=== PATIENT | female | born 1955 | race Hispanic/Latino ===

== ENCOUNTER 2022-09-08 07:21 | Inpatient (IN) | payer MEDICARE, OTHER ==
[~2022-09-08] VITALS: Ht 160 cm; Wt 74.8 kg
[~2022-09-08 07:21] MED LIST: ANTI-INFLAMMATORY; CALCIUM PO
[2022-09-08] MEDS ORDERED: SODIUM CHLORIDE 0.9% 1000ML 1,000 ML IV STA (07:26)
[2022-09-08 07:45] LABS: BASOPHILS % 0.1 % (0.0-1.0); EOSINOPHILS % 0.1 % (0.0-6.0); HEMATOCRIT 47.4 % (34.2-44.1); HEMOGLOBIN 15.7 g/dL (12.0-16.0); MEAN CORPUSCULAR HEMOGLOBIN 28.5 pg (28-32); MEAN CORPUSCULAR HGB CONC 33.1 g/dL (31-35); MONOCYTES # (AUTO) 0.3 (0.2-0.8); MONOCYTES % 2.2 % (4.4-11.3); NEUTROPHILS # (AUTO) 12.7 (2.1-6.9); NEUTROPHILS % 90.3 % (38.7-80.0); PLATELET COUNT 220 x10e3/uL (140-360); RED BLOOD COUNT 5.51 x10e6/uL (3.6-5.1); RED CELL DISTRIBUTION WIDTH 13.2 % (11.7-14.4)
[2022-09-08] MEDS ORDERED: ONDANSETRON HCL INJ 2MG/ML 2ML 2 MG/ML VIAL IV STA (07:45)
[2022-09-08 08:10] LABS: ANION GAP 17.2 mmol/L (8-16); CALCIUM 9.2 mg/dL (8.4-10.2); CREATININE, SERUM 0.86 mg/dL (0.57-1.11); POTASSIUM 4.2 mmol/L (3.5-5.1)
[2022-09-08] MEDS ORDERED: CEFTRIAXONE 1 GM VIAL IM ONE (08:15)
[2022-09-08] MEDS: LACTATED RINGER'S 1,000 ML INJ SCH ×2 (08:20→16:29)
[2022-09-08] MEDS ORDERED: IOPAMIDOL 370 MG/ML 100 ML INFUS..BTL INJ ONE (08:46)
[2022-09-08 08:47] LABS: CLARITY,URINE SL CLOUDY (CLEAR); COLOR,URINE YELLOW (YELLOW); KETONES,URINE 2+ (NEGATIVE); LEUKOCYTE ESTERASE ,URINE NEGATIVE (NEGATIVE); NITRITE,URINE NEGATIVE (NEGATIVE); PROTEIN,URINE DIPSTICK NEGATIVE (NEGATIVE); URINE UROBILINOGEN 0.2 mg/dL (0.2 - 1)
[2022-09-08 08:49] LABS: RBC,URINE 0-5 /HPF (0-5)
[2022-09-08 08:50] LABS: BACTERIA,URINE FEW /HPF; EPITHELIAL CELLS,URINE MODERATE /LPF
[2022-09-08] MEDS ORDERED: DEXTROSE 50% SYRINGE 50 ML IV PRN ×2 (10:00)
[2022-09-08] MEDS: INSULIN LISPRO 100 UNIT/1 ML 3ML VIAL SQ SCH ×3 (11:41→20:19)
[2022-09-08 12:15] LABS: CHOL/HDL RATIO 4.4 (3.0-3.6)
[2022-09-08 12:52] LABS: ALBUMIN 3.6 g/dL (3.5-5.0); ALBUMIN/GLOBULIN RATIO 1.1 (0.8-2.0); ANION GAP 13.5 mmol/L (8-16); CALCIUM 8.5 mg/dL (8.4-10.2); CREATININE, SERUM 0.74 mg/dL (0.57-1.11); POTASSIUM 4.5 mmol/L (3.5-5.1)
[2022-09-08 13:48] VITALS: BP 138/81; PULSE 91; RESP 17; TEMP 98.7; O2SAT 97
[2022-09-08 15:11] VITALS: BP 130/81; PULSE 91; RESP 18; TEMP 98.7; O2SAT 97
[2022-09-08] MEDS ORDERED: GLIMEPIRIDE2 MG PO (15:20)
[2022-09-08] MEDS ORDERED: METOPROLOL SUCC50 MG PO (15:20)
[2022-09-08 15:53] VITALS: BP 130/81; PULSE 91; RESP 18; TEMP 98.7; O2SAT 97
[2022-09-08 16:09] VITALS: BP 133/73; PULSE 84; RESP 20; TEMP 99.3; O2SAT 99
[2022-09-08] MEDS: FAMOTIDINE 20 MG/2 ML VIAL IV SCH (16:29)
[2022-09-08 20:57] VITALS: BP 135/71; PULSE 77; RESP 20; TEMP 98.6; O2SAT 100
[2022-09-08 21:00] VITALS: BP 135/71; PULSE 77; RESP 20; TEMP 98.6; O2SAT 100
[2022-09-09] VITALS (7 sets, daily range): BP systolic 126–148; BP diastolic 66–85; PULSE 69–88; RESP 17–18; TEMP 97.8–98.6; O2SAT 96–100
[2022-09-09] MEDS: LACTATED RINGER'S 1,000 ML INJ SCH ×3 (01:17→16:40)
[2022-09-09 05:24] LABS: BASOPHILS % 0.3 % (0.0-1.0); EOSINOPHILS % 0.3 % (0.0-6.0); HEMATOCRIT 42.4 % (34.2-44.1); HEMOGLOBIN 13.4 g/dL (12.0-16.0); LYMPHOCYTES # (AUTO) 1.1 (1.0-3.2); LYMPHOCYTES % 18.4 % (18.0-39.1); MEAN CORPUSCULAR HEMOGLOBIN 27.6 pg (28-32); MEAN CORPUSCULAR HGB CONC 31.6 g/dL (31-35); MEAN CORPUSCULAR VOLUME 87.2 fL (81-99); MONOCYTES # (AUTO) 0.4 (0.2-0.8); NEUTROPHILS # (AUTO) 4.4 (2.1-6.9); NEUTROPHILS % 74.7 % (38.7-80.0); PLATELET COUNT 178 x10e3/uL (140-360); RED BLOOD COUNT 4.86 x10e6/uL (3.6-5.1); RED CELL DISTRIBUTION WIDTH 13.2 % (11.7-14.4)
[2022-09-09 05:45] LABS: ANION GAP 14.8 mmol/L (8-16); CALCIUM 8.3 mg/dL (8.4-10.2); CREATININE, SERUM 0.7 mg/dL (0.57-1.11); POTASSIUM 3.8 mmol/L (3.5-5.1)
[2022-09-09] MEDS: FAMOTIDINE 20 MG/2 ML VIAL IV SCH ×2 (08:15→16:40)
[2022-09-09] MEDS: INSULIN LISPRO 100 UNIT/1 ML 3ML VIAL SQ SCH ×4 (08:33→19:46)
[2022-09-09] MEDS: METOPROLOL SUCCINATE 50 MG TAB XL PO SCH (10:16)
[2022-09-10] VITALS (8 sets, daily range): BP systolic 126–151; BP diastolic 57–79; PULSE 71–81; RESP 15–18; TEMP 97.9–98.9; O2SAT 98–100
[2022-09-10] MEDS: LACTATED RINGER'S 1,000 ML INJ SCH ×5 (00:43→20:46)
[2022-09-10] MEDS: INSULIN LISPRO 100 UNIT/1 ML 3ML VIAL SQ SCH ×4 (07:30→20:45)
[2022-09-10] MEDS ORDERED: Morphine 2mg Syringe 2 MG/ML SYR IV PRN (08:00)
[2022-09-10] MEDS ORDERED: Morphine 4mg INJECTION 4 MG/ML INJ ONE (08:19)
[2022-09-10] MEDS ORDERED: METOPROLOL SUCCINATE 50 MG TAB XL PO SCH (09:00)
[2022-09-10] MEDS: FAMOTIDINE 20 MG/2 ML VIAL IV SCH ×2 (09:14→16:05)
[2022-09-10] MEDS: METOPROLOL SUCCINATE 50 MG TAB XL PO SCH (09:15)
[2022-09-11] VITALS (7 sets, daily range): BP systolic 127–169; BP diastolic 64–82; PULSE 70–85; RESP 17; TEMP 97.9–98.9; O2SAT 95–100
[2022-09-11] MEDS: LACTATED RINGER'S 1,000 ML INJ SCH (05:13)
[2022-09-11] MEDS: INSULIN LISPRO 100 UNIT/1 ML 3ML VIAL SQ SCH ×2 (07:30→11:30)
[2022-09-11] MEDS: FAMOTIDINE 20 MG/2 ML VIAL IV SCH (08:45)
[2022-09-11] MEDS: METOPROLOL SUCCINATE 50 MG TAB XL PO SCH (08:46)
[2022-09-11] MEDS ORDERED: SENOKOT8.6 MG PO (11:30)
[2022-09-11] MEDS ORDERED: CEPHALEXIN500 MG PO (11:30)
[2022-09-11] MEDS ORDERED: FAMOTIDINE20 MG PO (11:30)
[2022-09-11] MEDS ORDERED: ONDANSETRON ODT4 MG PO (11:30)
[2022-09-11] MEDS ORDERED: FAMOTIDINE 20 MG TAB PO SCH (16:30)
== END 2022-09-11 12:52 | disposition home or self-care (01) | DRG 871 ==
LOC: ER 07:24 → ERHOLD 09:46 → MED/SURG 13:20 → OBSVTOIN 09-10 11:19
PROVIDERS: ADMIT Internal Medicine; ATTEND Internal Medicine
DX: A41.9 Sepsis, unspecified organism (principal); E11.10 Type 2 diabetes mellitus with ketoacidosis without coma; N39.0 Urinary tract infection, site not specified; K80.10 Calculus of gallbladder with chronic cholecystitis without obstruction; R19.7 Diarrhea, unspecified; K76.0 Fatty (change of) liver, not elsewhere classified; E66.01 Morbid (severe) obesity due to excess calories; Z68.32 Body mass index [BMI] 32.0-32.9, adult; I10 Essential (primary) hypertension; E78.5 Hyperlipidemia, unspecified; R00.0 Tachycardia, unspecified; R65.20 Severe sepsis without septic shock; E11.65 Type 2 diabetes mellitus with hyperglycemia; Z20.822 Contact with and (suspected) exposure to COVID-19
CPT/HCPCS: 0223U; 36415; 74176; 76705; 78227; 80048; 80053; 80061; 81001; 82948; 83036; 83605; 85025; 87040; 87086; 93005; 94760; 96372; 99284; A9537; G0378; J0696; J2270; J2405; J2543; J7030; Q9967